=== PATIENT | male | born 1980 | race Caucasian/White ===

== ENCOUNTER 2016-11-05 10:17 | Outpatient (CLI) | payer OTHER ==
--- NOTE | 2016-11-05 12:15 | DIAGNOSTIC IMAGING REPORT ---
PROCEDURE: XR UPPER GI WITH AIR INDICATION: FOREIGN BODY SWALLOWING SENSATION TECHNIQUE: Double contrast study. Fluoroscopy time, two point a minutes; 1145.11 mGy. 69 fluoroscopic images (including cinefluoroscopy). COMPARISON: None. FINDINGS: Pharyngoesophagus demonstrates moderate prominence of the cricopharyngeus muscle with mild narrowing of the pharyngoesophageal junction ( 30%). Pharyngoesophagus is otherwise normal. Mild to moderate gastroesophageal reflux. Esophagus is otherwise normal. Stomach and duodenum are normal. IMPRESSION: 1. Mild to moderate gastroesophageal reflux. 2. Moderate prominence of the cricopharyngeus muscle may be a reflection of chronic reflux. 3. Otherwise negative upper GI. 4. Findings discussed with Dr. Eneida Odonnell.
== END 2016-11-05 23:00 ==
LOC: XR SRH 10:17
DX: K21.9 Gastro-esophageal reflux disease without esophagitis (principal)